=== PATIENT | female | born 1955 | race Caucasian/White ===

== ENCOUNTER → 2024-08-15 06:20 | Day surgery (SDC) | payer OTHER, SELFPAY ==
[2024-08-09 07:10] VITALS: BMI 29.6
[2024-08-09 10:32] LABS: % Basophils 0.7 % (0-2); % Eosinophils 6.4 % (0-6); % Immature Granulocytes 0.3 % (0-0.5); % Monocytes 5.8 % (1.7-9.3); % Neutrophils 41.8 % (42.2-75.2); Absolute Basophils 0.1 10^3/uL (0-0.2); Absolute Eosinophils 0.5 10^3/uL (0-0.7); Absolute Lymphocytes 3.3 10^3/uL (1.2-3.4); Absolute Monocytes 0.4 10^3/uL (0.1-0.6); Hematocrit 38.8 % (37.0-47.0); Hemoglobin 13.2 g/dL (12.0-16.0); Mean Corpuscular Hgb 31.6 pg (27.0-31.0); Mean Corpuscular Volume 92.8 fL (81.0-99.0); Mean Platelet Volume 9.9 fL (7.4-10.4); Nucleated Red Blood Cells % 0 %; Platelet Count 199 10^3/uL (130-400); Red Blood Cell Count 4.18 10^6/uL (4.20-5.40); Red Cell Dist. Width 12.4 % (11.5-14.5); White Blood Cell Count 7.2 10^3/uL (4.8-10.8)
[2024-08-09 10:40] LABS: INR 1.01; PT 13.1 Sec (11.4-14.6)
[2024-08-09 10:41] LABS: APTT 29.3 Sec (23.4-35.0)
[2024-08-09 10:55] LABS: Urine Albumin Negative (Neg - Trace); Urine Bilirubin Negative (Negative); Urine Character Clear (Clear); Urine Color Yellow; Urine Glucose Negative (Negative); Urine Ketone Negative (Negative); Urine Leukocyte Trace (Negative); Urine Nitrite Negative (Negative); Urine Occult Blood Negative (Negative); Urine Urobilinogen Negative (Neg - 1+)
[2024-08-09 11:07] LABS: Blood Urea Nitrogen 13 mg/dl (7-17); Calcium 9.9 mg/dl (8.4-10.2); Carbon Dioxide 24 mmol/L (22-30); Chloride 103 mmol/L (98-107); Estimated Creatinine Clearance 95 ml/min; Glucose 91 mg/dl (70-99); Potassium 4.2 mmol/L (3.5-5.1); Sodium 142 mmol/L (135-145); eGFR > 60.00
[2024-08-09 11:41] LABS: Urine Red Blood Cell None Seen /HPF (0-2)
[2024-08-15 07:25] VITALS: BP 148/83
[2024-08-15] MEDS: NORMOSOL-R/PLASMALYTE-A 1000 IV (07:30)
[2024-08-15] MEDS: VANCOCIN 300 ML IV (07:35)
[2024-08-15] MEDS: VANCOCIN 300 MG IV (07:35)
[2024-08-15 07:40] VITALS: BMI 29.6
[2024-08-15 09:50] VITALS: BP 115/73
[2024-08-15 10:05] VITALS: BP 116/71
[2024-08-15 10:20] VITALS: BP 133/69
== END ==
LOC: SDS 06:20
PROVIDERS: ATTENDING PHYSICIAN Urology; FAMILY PHYSICIAN Family Medicine
DX: T83.190A Other mechanical complication of urinary electronic stimulator device, initial encounter (principal); Y73.2 Prosthetic and other implants, materials and accessory gastroenterology and urology devices associated with adverse incidents; N39.41 Urge incontinence; N30.10 Interstitial cystitis (chronic) without hematuria; M62.89 Other specified disorders of muscle; R35.0 Frequency of micturition
CPT/HCPCS: 64590; 64561; 36415; 72170; 76000; 80048; 81003; 81015; 85025; 85610; 85730; 93005; C1767; C1778; C1787

== ENCOUNTER → 2024-12-14 11:24 | Outpatient (REF) | payer OTHER, SELFPAY | LOC: HWRAD 11:24 | PROVIDERS: ATTENDING PHYSICIAN Family Medicine | DX: M16.11 Unilateral primary osteoarthritis, right hip (principal) | CPT/HCPCS: 73502 ==

== ENCOUNTER → 2025-02-13 14:26 | Outpatient (REF) | payer OTHER, SELFPAY | LOC: DHSLP 14:26 | PROVIDERS: ATTENDING PHYSICIAN Family Medicine | DX: R40.0 Somnolence (principal); R06.83 Snoring; J45.40 Moderate persistent asthma, uncomplicated | CPT/HCPCS: 95806 ==

== ENCOUNTER → 2025-05-17 12:27 | Outpatient (REF) | payer OTHER, SELFPAY | LOC: RCS 12:27 | PROVIDERS: ATTENDING PHYSICIAN Internal Medicine Cardiovascular Disease; FAMILY PHYSICIAN Family Medicine | DX: R00.2 Palpitations (principal) | CPT/HCPCS: 78452; 93017; A9500; J2785 ==

== ENCOUNTER → 2025-06-01 09:05 | Outpatient (REF) | payer OTHER, SELFPAY | LOC: HWRAD 09:05 | PROVIDERS: ATTENDING PHYSICIAN Internal Medicine Critical Care Medicine; FAMILY PHYSICIAN Family Medicine | DX: J84.9 Interstitial pulmonary disease, unspecified (principal); R91.1 Solitary pulmonary nodule | CPT/HCPCS: 71250 ==

== ENCOUNTER → 2025-07-20 14:17 | Outpatient (REF) | payer OTHER, SELFPAY | LOC: HWWDC 14:17 | PROVIDERS: ATTENDING PHYSICIAN Internal Medicine Rheumatology; FAMILY PHYSICIAN Physician Assistant Medical; REFERRING PHYSICIAN Family Medicine | DX: M81.0 Age-related osteoporosis without current pathological fracture (principal); Z12.31 Encounter for screening mammogram for malignant neoplasm of breast | CPT/HCPCS: 77063; 77067; 77080 ==